=== PATIENT | male | born 1970 | race Caucasian/White ===

== ENCOUNTER 2023-03-25 04:28 | Inpatient (IN) | payer OTHER ==
[~2023-03-25] VITALS: Ht 167.6 cm; Wt 158.8 kg
[2023-03-25 04:30] VITALS: BP_SYST 98
[2023-03-25] MEDS ORDERED: NS 1000 ML IV.SOLN IV ONE (04:45)
[2023-03-25] MEDS ORDERED: cefTRIAXone 500 MG in D5W 50 ML IV ONE (04:45)
[2023-03-25 05:26] LABS: BASOPHILS # (AUTO) 0.1 K/uL (0.0-0.2); BASOPHILS % (AUTO) 0.4 % (0.0-2.0); EOSINOPHILS % (AUTO) 0.1 % (0.0-4.0); HEMATOCRIT 27.2 % (36-54); HEMOGLOBIN 8.5 g/dL (14.0-18.0); LYMPHOCYTES # (AUTO) 1.2 K/uL (1.0-5.5); LYMPHOCYTES % (AUTO) 6.1 % (20.5-51.5); MEAN CORPUSCULAR HEMOGLOBIN 28 pg (27-31); MEAN CORPUSCULAR HGB CONC 31 % (32-36); MEAN CORPUSCULAR VOLUME 90 fL (79.0-98.0); MONOCYTES # (AUTO) 1.2 K/uL (0.0-1.0); MONOCYTES % (AUTO) 5.9 % (1.7-9.3); NEUTROPHILS # (AUTO) 17.7 K/uL (1.8-7.7); NEUTROPHILS % (AUTO) 87.5 % (40.0-70.0); PLATELET COUNT (AUTO) 295 K/uL (130-430); RED BLOOD CELL COUNT(AUTO) 3.02 MIL/uL (4.2-6.2); RED CELL DISTRIBUTION WIDTH 15.5 % (9.0-15.0); WHITE BLOOD COUNT (AUTO) 20.3 K/uL (4.8-10.8)
[2023-03-25] MEDS ORDERED: PIPERACILLIN/TAZO 3.375 GM in NS 50 ML IV ONE (05:30)
[2023-03-25] MEDS ORDERED: AMLO2.5T2 PO (05:34)
[2023-03-25] MEDS ORDERED: APIX5TAB4 PO (05:34)
[2023-03-25] MEDS ORDERED: CALC0.258 PO (05:34)
[2023-03-25] MEDS ORDERED: DILT180C67 PO (05:34)
[2023-03-25] MEDS ORDERED: FURO-149 PO (05:34)
[2023-03-25] MEDS ORDERED: LISI10TA29 PO (05:34)
[2023-03-25] MEDS ORDERED: ESCI10TA PO (05:34)
[2023-03-25] MEDS ORDERED: SODI650T PO (05:34)
[2023-03-25] MEDS ORDERED: LIP40 PO (05:34)
[2023-03-25] MEDS ORDERED: SPIR25TA6 PO (05:34)
[2023-03-25 05:48] LABS: ALANINE AMINOTRANSFERASE 6 U/L (12-78); ALBUMIN 2.3 g/dL (3.4-4.8); ANION GAP 18 (5-15); ASPARTATE AMINOTRANSFERASE 20 U/L (10-37); CALCIUM 7.9 mg/dL (8.4-11.0); CHLORIDE 100 mmol/L (98-107); GFR AFRICAN AMERICAN 9 mL/min (>90); TOTAL BILIRUBIN 0.4 mg/dL (0.0-1.0); UREA NITROGEN, BLOOD 66 mg/dL (8-21)
[2023-03-25 05:50] LABS: CREATININE 7.95 mg/dL (0.55-1.30); GLUCOSE 482 mg/dL (70-99)
[2023-03-25] MEDS ORDERED: PIPERACILLIN/TAZOBACTAM 3.375 GM/VIAL (ZOSYN) IV ONE (06:02)
[2023-03-25] MEDS ORDERED: INSULIN REGULAR, HUMAN 10 UNITS/0.1 ML, 3 ML VIAL IVP ONE ×2 (06:30→11:45)
[2023-03-25] MEDS ORDERED: dilTIAZem HCL IVP 5 MG/ML VIAL IVP ONE ×2 (07:00→07:30)
[2023-03-25] MEDS ORDERED: DILTIAZEM HCL 60 MG TABLET PO ONE (07:00)
[2023-03-25 09:09] LABS: BILIRUBIN,URINE NEGATIVE (NEGATIVE); BLOOD, URINE 3+ (NEGATIVE); CLARITY/URINE CLOUDY (CLEAR); COLOR,URINE YELLOW (YELLOW); GLUCOSE,URINE 2+ (NEGATIVE); KETONES,URINE TRACE (NEGATIVE); LEUKOCYTE ESTERASE ,URINE 2+ (NEGATIVE); NITRITE, URINE POSITIVE (NEGATIVE); PH,URINE 5.5 (5.0-8.0); PROTEIN URINE 3+ (NEGATIVE); UROBILINOGEN,URINE 0.2 (0.2-1.0)
[2023-03-25 09:28] LABS: BACTERIA,URINE FEW /HPF (None Seen); RBC,URINE 20-50 /HPF (0-3); WBC,URINE 50-80 /HPF (0-3)
[2023-03-25 09:29] LABS: CALCIUM OXALATE CRYSTALS,UR 0-10 /HPF (None Seen)
[2023-03-25 11:14] LABS: BASOPHILS # (AUTO) 0.1 K/uL (0.0-0.2); BASOPHILS % (AUTO) 0.3 % (0.0-2.0); HEMATOCRIT 28.7 % (36-54); HEMOGLOBIN 8.8 g/dL (14.0-18.0); LYMPHOCYTES # (AUTO) 1.2 K/uL (1.0-5.5); LYMPHOCYTES % (AUTO) 4.1 % (20.5-51.5); MEAN CORPUSCULAR HEMOGLOBIN 28 pg (27-31); MEAN CORPUSCULAR HGB CONC 31 % (32-36); MEAN CORPUSCULAR VOLUME 91 fL (79.0-98.0); MONOCYTES # (AUTO) 1.3 K/uL (0.0-1.0); MONOCYTES % (AUTO) 4.3 % (1.7-9.3); NEUTROPHILS # (AUTO) 26.9 K/uL (1.8-7.7); NEUTROPHILS % (AUTO) 91.3 % (40.0-70.0); PLATELET COUNT (AUTO) 378 K/uL (130-430); RED BLOOD CELL COUNT(AUTO) 3.17 MIL/uL (4.2-6.2); RED CELL DISTRIBUTION WIDTH 15.6 % (9.0-15.0); WHITE BLOOD COUNT (AUTO) 29.4 K/uL (4.8-10.8)
[2023-03-25 11:26] LABS: ACETONE, SERUM NEGATIVE (NEGATIVE)
[2023-03-25 11:42] LABS: ALANINE AMINOTRANSFERASE 89 U/L (12-78); ALBUMIN 2.2 g/dL (3.4-4.8); ANION GAP 20 (5-15); ASPARTATE AMINOTRANSFERASE 381 U/L (10-37); CALCIUM 7.7 mg/dL (8.4-11.0); CHLORIDE 101 mmol/L (98-107); GFR AFRICAN AMERICAN 9 mL/min (>90); TOTAL BILIRUBIN 0.6 mg/dL (0.0-1.0); UREA NITROGEN, BLOOD 65 mg/dL (8-21)
[2023-03-25 11:45] LABS: GLUCOSE 434 mg/dL (70-99)
[2023-03-25 11:46] LABS: CREATININE 8.08 mg/dL (0.55-1.30)
[2023-03-25] MEDS ORDERED: NOREPINEPHRINE BITARTRATE 4 MG in NS 246 ML IV ONE (12:45)
[2023-03-25] MEDS ORDERED: PROPOFOL DRIP 100 ML IV ONE ×2 (13:49→14:00)
[2023-03-25] MEDS ORDERED: fentaNYL CITRATE/PF 100 MCG/2 ML AMP IVP ONE (14:00)
[2023-03-25] MEDS ORDERED: PIPERACILLIN/TAZOBACTAM 2.25 GM in NS 50 ML IV ONE (14:00)
[2023-03-25] MEDS ORDERED: VECURONIUM BROMIDE 10 MG/VIAL (NORCURON) IVP ONE (14:00)
[2023-03-25] MEDS ORDERED: ETOMIDATE 20 MG/ 10 ML VIAL (AMIDATE) IVP ONE (14:00)
[2023-03-25] MEDS ORDERED: NOREPINEPHRINE BITARTRATE 4 MG in NS 246 ML IV PRN (14:00)
[2023-03-25] MEDS ORDERED: SODIUM BICARBONATE 8.4% JECT 50 MEQ/50 ML SYRINGE IVP ONE ×2 (14:02→14:30)
[2023-03-25] MEDS ORDERED: NOREPINEPHRINE 4 MG/4 ML VIAL IV ONE ×3 (14:02→15:13)
[2023-03-25] MEDS ORDERED: NOREPINEPHRINE BITARTRATE 4 MG in D5W 246 ML IV PRN (14:15)
[2023-03-25] MEDS ORDERED: NACL 0.9% 2,000 ML IV ONE (14:30)
[2023-03-25] MEDS ORDERED: VANCOMYCIN HCL 1,500 MG in NS 250 ML IV ONE (14:30)
[2023-03-25] MEDS ORDERED: SODIUM BICARBONATE 8.4% JECT 150 MEQ in D5W 1,000 ML IV SCH (14:30)
[2023-03-25] MEDS ORDERED: NOREPINEPHRINE BITARTRATE 16 MG in NS 234 ML IV PRN (14:30)
[2023-03-25] MEDS ORDERED: DEXTROSE 50% JECT 50 ML DISP.SYRIN IVP PRN (15:00)
[2023-03-25] MEDS ORDERED: INSULIN REGULAR, HUMAN 100 UNITS/ML, 3 ML VIAL (humuLIN R) SUBCUT PRN (15:00)
[2023-03-25 15:20] LABS: INR 1.9 (0.80-1.20); PROTHROMBIN TIME 19.3 SECS (9.5-12.5)
[2023-03-25 15:43] VITALS: BP_SYST 125
[2023-03-25] MEDS ORDERED: ALBUMIN HUMAN 25% 100 ML IV ONE ×2 (15:45→16:00)
[2023-03-25] MEDS ORDERED: SODIUM BICARBONATE 8.4% JECT 50 MEQ/50 ML SYRINGE IVP SCH (16:00)
[2023-03-25] MEDS ORDERED: PROPOFOL DRIP 100 ML IV PRN (16:30)
[2023-03-25] MEDS ORDERED: ATROPINE SULFATE 1 MG/10 ML SYRINGE IVP ONE (18:00)
[2023-03-25] MEDS ORDERED: SODIUM BICARBONATE 8.4% JECT 50 MEQ/50 ML SYRINGE ONE (18:00)
[2023-03-25] MEDS ORDERED: EPINEPHrine JECT 0.1 MG/ML SYR ONE (18:00)
[2023-03-25] MEDS ORDERED: PIPERACILLIN/TAZOBACTAM 2.25 GM in NS 50 ML IV SCH (18:00)
[2023-03-25 18:11] VITALS: BP_SYST 111
[2023-03-25] MEDS: NOREPINEPHRINE BITARTRATE 32 MG in NS 218 ML IV PRN ×2 (18:16→19:58)
[2023-03-25 18:54] VITALS: BP_SYST 111
[2023-03-25 19:00] VITALS: BP_SYST 0
[2023-03-25] MEDS ORDERED: VASOPRESSIN 40 UNITS in NS 38 ML IV PRN (19:30)
[2023-03-25] MEDS ORDERED: PHENYLEPHRINE HCL 100 MG in NS 240 ML IV PRN (19:30)
[2023-03-25] MEDS ORDERED: PHENYLEPHRINE HCL 10 MG/ML VIAL (NEOSYNEPHRINE) ONE (19:35)
[2023-03-25] MEDS ORDERED: VASOPRESSIN 20 UNITS/ML VIAL IV ONE (19:35)
[2023-03-25 20:00] VITALS: BP_SYST 0
[2023-03-26] MEDS ORDERED: ATORVASTATIN 20 MG TABLET PO SCH (09:00)
[2023-03-26] MEDS ORDERED: calcitrioL 0.25 MCG CAPSULE PO SCH (09:00)
== END 2023-03-25 20:34 | DRG 871 ==
LOC: SED 04:28 → SMU 12:30 → SIC 15:09
PROVIDERS: ADMIT Internal Medicine; ATTEND Internal Medicine
PROC: 06HY33Z Insertion of Infusion Device into Lower Vein, Percutaneous Approach (ICD-10-PCS; principal; 2023-03-25)
PROC: B54BZZA Ultrasonography of Right Lower Extremity Veins, Guidance (ICD-10-PCS; 2023-03-25)
PROC: 5A1D70Z Performance of Urinary Filtration, Intermittent, Less than 6 Hours Per Day (ICD-10-PCS; 2023-03-25)
PROC: 0BH17EZ Insertion of Endotracheal Airway into Trachea, Via Natural or Artificial Opening (ICD-10-PCS; 2023-03-25)
PROC: 5A1935Z Respiratory Ventilation, Less than 24 Consecutive Hours (ICD-10-PCS; 2023-03-25)
DX: A41.9 Sepsis, unspecified organism (principal); E43 Unspecified severe protein-calorie malnutrition; J96.00 Acute respiratory failure, unspecified whether with hypoxia or hypercapnia; R65.21 Severe sepsis with septic shock; G93.41 Metabolic encephalopathy; N18.6 End stage renal disease; I31.39 Other pericardial effusion (noninflammatory); Z68.43 Body mass index [BMI] 50.0-59.9, adult; I48.20 Chronic atrial fibrillation, unspecified; N39.0 Urinary tract infection, site not specified; E87.20 Acidosis, unspecified; I12.0 Hypertensive chronic kidney disease with stage 5 chronic kidney disease or end stage renal disease; Z20.822 Contact with and (suspected) exposure to COVID-19; E66.01 Morbid (severe) obesity due to excess calories; E78.5 Hyperlipidemia, unspecified; E87.5 Hyperkalemia; G47.33 Obstructive sleep apnea (adult) (pediatric); I46.9 Cardiac arrest, cause unspecified; D72.829 Elevated white blood cell count, unspecified; N20.0 Calculus of kidney; E11.22 Type 2 diabetes mellitus with diabetic chronic kidney disease; Z88.8 Allergy status to other drugs, medicaments and biological substances; Z79.899 Other long term (current) drug therapy; Z79.01 Long term (current) use of anticoagulants
CPT/HCPCS: 36415; 36600; 71045; 76376; 80053; 81000; 82009; 82140; 82803-TC; 82962; 83605; 83880; 84484; 85025; 85610-TC; 85730-TC; 87040; 87081; 87086; 92950; 93005; 94002; J0171; J0461; J1815; J2370; J2543; J2704; J3370; J3490; J7050; J7060